=== PATIENT | female | born 2005 | race Two or more races ===

== ENCOUNTER 2023-11-04 13:18 | Emergency (ER) | payer MEDICAID, OTHER ==
[~2023-11-04] VITALS: Ht 165.1 cm; Wt 52.3 kg
[2023-11-04 14:25] LABS: Urine Bacteria None Seen /hpf (None Seen)
[2023-11-04 14:43] LABS: Urine Blood Negative /uL (Negative); Urine Clarity Clear (Clear); Urine Color Light-Yellow (Yellow); Urine Mucus FEW (None Seen); Urine Protein, UAD TRACE (Negative); Urine Specific Gravity 1.023 (1.001-1.035); Urine Urobilinogen 2 mg/dL (Negative); Urine WBC 14 /hpf (0 - 5)
[2023-11-04 14:48] LABS: Basophils # (auto) 0 10 ^3/uL (0-0.2); Basophils % (auto) 0.8 % (0.0-2.0); Eosinophils # (auto) 0 10 ^3/uL (0-0.8); Eosinophils % (auto) 0.7 % (0.0-7.0); Hematocrit 40.4 % (36.0-46.0); Lymphocytes # (auto) 1.5 10 ^3/uL (0.4-5.4); Lymphocytes % (auto) 36.1 % (10.0-50.0); Mean Corpuscular Hemoglobin 26.2 pg (28.0-32.0); Mean Corpuscular Hgb Conc. 32.2 g/dL (32.0-36.0); Mean Corpuscular Volume 81.6 fL (80.0-100.0); Monocytes # (auto) 0.5 10 ^3/uL (0-1.3); Monocytes % (auto) 11.2 % (0.0-12.0); Neutrophils # (auto) 2.1 10 ^3/uL (1.6-8.6); Neutrophils % (auto) 51.2 % (37.0-80.0); Platelet Count (auto) 269 10^3/uL (140-450); Red Blood Cells 4.95 10^6/uL (4.0-5.20); Red Cell Distribution Width 14.4 % (11.8-14.3); White Blood Cell 4.1 10^3/uL (4.4-10.8)
[2023-11-04 14:54] LABS: Chloride 108 mmol/L (98-107); Potassium 3.9 mmol/L (3.5-5.1); Sodium 141 mmol/L (136-145)
[2023-11-04 14:55] LABS: Anion Gap 4 (5-15); Carbon Dioxide 29 mmol/L (20-31)
[2023-11-04 14:56] LABS: Calcium 10.1 mg/dL (8.7-10.4)
[2023-11-04 15:01] LABS: Blood Urea Nitrogen 7 mg/dL (9-23); Glucose 75 mg/dL (74-106)
[2023-11-04] MEDS ORDERED: CIPR-173 PO (15:16)
[2023-11-04] MEDS ORDERED: ZOFR4T PO (16:28)
[2023-11-04 17:10] VITALS: BP 128/72; PULSE 85; RESP 16; TEMP 98.6; O2SAT 100
== END 2023-11-04 17:16 | disposition home or self-care (01) ==
LOC: ER 13:18
DX: N39.0 Urinary tract infection, site not specified (principal)
CPT/HCPCS: 36415; 80048; 81001; 85025